=== PATIENT | male | born 1960 | race Two or more races ===

== ENCOUNTER → 2020-05-16 11:25 | Outpatient (BNVA) | payer OTHER, SELFPAY | PROVIDERS: Visit Provider Surgery Vascular Surgery | DX: M79.604 Pain in right leg (principal) | CPT/HCPCS: 99212 ==

== ENCOUNTER 2021-03-29 09:05 | Emergency (ER) | payer MEDICAID, SELFPAY ==
--- NOTE | ~2021-03-29 | XR_ITS ---
EXAMINATION: XR CHEST CLINICAL INFORMATION: Shortness of breath. COMPARISON: None TECHNIQUE: Frontal view of the chest was obtained. FINDINGS: No significant abnormality is noted involving the heart, lungs, mediastinum, bony thorax or soft tissues. XR/XR chest 1V IMPRESSION: Unremarkable chest exam.
[2021-03-29 09:32] VITALS: BP 117/77; PULSE 74; RESP 18; TEMP 36.6; O2SAT 100; BMI 27.2
[2021-03-29 10:28] LABS: Strep A Nucleic Acid Negative (Negative)
--- NOTE | 2021-03-29 10:52 | ED.URI ---
HPI - URI/Sore Throat General Chief Complaint: Dyspnea Stated Complaint: SOB Time Seen by Provider: 03/29/21 09:30 Source: patient Mode of arrival: ambulatory Limitations: no limitations History of Present Illness HPI Narrative: 60-year-old male who denies any past medical history presenting to the ED with complaints of generalized fatigue, malaise, body aches, chills, sweats, cough and shortness of breath since last night worse this morning. He wants to be tested for COVID. He reports associated abdominal discomfort and softer stools although denies diarrhea. Denies recent travel or sick contacts. Denies any fevers, dizziness, headaches, change of vision, nausea/vomiting, specific point tenderness of the abdomen, back pain, dysuria, hematuria, black or bloody stools, diarrhea, constipation, focal weakness or any other symptoms complaints or concerns at this time. MD elicited complaint: other (URI symptoms wants to be tested for COVID) Onset (ago): day(s) (Since last night) Consistency: constant and progressively worsening Severity: moderate Able to tolerate fluids by mouth: Yes Exacerbating factors: nothing Relieving factors: nothing Associated symptoms: chills, myalgias, diaphoresis, cough, shortness of breath and abdominal pain Treatments prior to arrival: none Related Data Home Medications Medication Instructions Recorded Confirmed cyclobenzaprine 5 mg tablet mg PO 05/16/20 tramadol 50 mg tablet 50 mg PO Q12H PRN 05/16/20 Previous Rx's Medication Instructions Recorded acetaminophen 500 mg tablet 1,000 mg PO QID PRN #14 tab 03/29/21 (Tylenol Extra Strength) albuterol sulfate 90 mcg/actuation 1 inh INHALATION QID PRN #8.5 g 03/29/21 aerosol inhaler azithromycin 250 mg tablet See Rx Instructions .ROUTE 03/29/21 .COMPLEX #6 tab codeine 10 mg-guaifenesin 100 mg/5 5 ml PO Q6H PRN #120 ml 03/29/21 mL oral liquid (Guaifenesin AC) cyclobenzaprine 10 mg tablet 10 mg PO Q8H #10 tab 03/29/21 ibuprofen 800 mg tablet 800 mg PO Q8H PRN #14 tab 03/29/21 Allergies Allergy/AdvReac Type Severity Reaction Status Date / Time penicillin V Allergy Unknown Unknown Verified 05/16/20 11:34 Penicillins [PCN] AdvReac Unknown DOESN'T Verified 05/16/20 11:34 TAKE DUE TO FAMILY HX Review of Systems Review of Systems: Constitutional : Positive chills/fatigue/malaise/diaphoresis, No Fever ENT/Mouth : No sore throat, No runny nose Eyes: No Discharge Cardiovascular : Positive shortness of breath, No Chest Pain Respiratory : Positive Cough, No Sputum, No Wheezing, No Smoke Exposure, No Dyspnea Gastrointestinal : Positive abdominal discomfort, positive looser stools, No Nausea, No Vomiting, No Diarrhea, No constipation Genitourinary : No irregular bleeding, No Dysuria, No Urinary Frequency, No Hematuria, No Urinary Incontinence, No Urgency, No Flank Pain, Musculoskeletal : No Myalgia Skin : No rash Neuro : No Headache Yes all other systems are reviewed and are negative [facility] Past Medical History Attestation statement: The following information was validated with the patient. Medical History No known health problems Social History Social History Advance Directives: No Physical Exam Vital Signs: Vital Signs: Last Vital Signs Temp 97.9 F 03/29/21 09:32 Pulse 74 03/29/21 09:32 Resp 18 03/29/21 09:32 BP 117/77 03/29/21 09:32 Pulse Ox 100 03/29/21 09:32 Body Mass Index 27.2 vital signs have been reviewed as normal and appeared to be correct. Blood pressure normal. Heart rate normal. Respiration rate normal. Temperature normal. Oxygen saturation normal. Appearance: Alert. Oriented X3. No acute distress. Head: Normal external exam. Normocephalic. Eyes: PERRLA. EOMI. Conjunctiva and sclera normal. Eyelids normal. ENT: EAC WNL. TM WNL. Pharynx normal. Uvula midline. Moist mucous membranes. No trismus noted. No drooling noted. No muffled voice noted. Neck: Normal inspection. Neck supple. FROM. No adenopathy. No meningeal signs. CVS: Normal heart rate and rhythm. Heart sound normal. No murmurs noted. Pulses normal throughout. Respiratory: No respiratory distress. Painless inspiration. Breath sounds normal. No wheezes/rales/rhonchi noted. Chest nontender. No accessory muscle usage noted or decreased air movement noted. Abdomen: Soft and nontender. Nondistended. No guarding. No rigidity. Bowel sounds normal in all 4 quadrants. No distention noted. No organomegaly noted. No visible injury noted. No rebound tenderness. Negative Rovsing sign. Negative obturator's sign. Negative psoas sign. Negative Dimas sign. Back: No CVA tenderness. Full range of motion noted. Skin: Skin warm and dry. Normal skin color. Normal skin turgor. No rashes/lesions/lacerations noted. Extremities: No lower extremity edema is noted. No calf tenderness is noted. Extremities exhibit normal range of motion. Extremities nontender. Neuro: Oriented X 3. No motor deficit. No sensory deficit. Reflexes normal. Normal steady gait. Course Course Course Narrative: 60-year-old male presenting to the ED with complaints of URI symptoms since last night worse this morning. Denies recent travel or sick contacts. On exam patient is alert and oriented x3. Not in any acute distress. Lungs clear to auscultation. CV RRR. Abdomen is soft and nontender. X-ray obtained negative for any acute processes. Rapid strep obtained and negative. COVID/RSV/flu pending at this time. No additional labs indicated at this time. Therefore I explained to the patient that I will discharge him with antibiotics and symptomatic treatment and instructions to self isolate until 7-10 days since his symptoms started. I will discharge him and call him today with positive or negative results for COVID. And instructions to return if any new or worsening symptoms to follow up with primary care provider. Patient understands agrees with this plan. MDM - URI/Sore Throat Medical Records Attestation: I reviewed the patient's medical records. Lab Data Attestation: I reviewed the patient's lab results. Labs: Lab Results 03/29/21 Range/Units 10:16 S. pyogenes GrpA SUGAR Negative (Negative) Imaging Data Chest x-ray: Attestation: I personally reviewed and interpreted this imaging study as follows: Radiologist's impression: FINDINGS: No significant abnormality is noted involving the heart, lungs, mediastinum, bony thorax or soft tissues. XR/XR chest 1V IMPRESSION: Unremarkable chest exam. Discharge Plan Discharge Clinical Impression: Upper respiratory infection Patient Disposition: Home, Self-Care Instructions: Upper Respiratory Infection (ED) Additional Instructions: Based on your symptoms and history we have sent a COVID-19. Although your RESULT IS PENDING at this time. RESULTS should return within 2-4 hours. At this time you will be contacted with either NEGATIVE OR POSITIVE results. -Please wait until we contact you for your results. At this time you will be okay for discharge. Please plan for self quarantine for up to 14 days. Do not expose yourself to others. You may not go to work. If testing does come back negative you may return to activities as long as you are no longer having any symptoms for at least 3 days. Please continue to follow cold instructions and wash your hands frequently. You may take Tylenol as directed on the bottle for pain or fever. Patient seen in the emergency department on 03/29/2021 and should be excused from work until negative test results AND until 72 hours without any symptoms AND at least 10 days have passed since symptoms first appeared or since last exposure to COVID-19 positive patient CDC Guidelines for home isolation: - Stay away from others - WEAR A MASK if you are sick AND STAY HOME - Cover your mouth and nose with a tissue when you cough or sneeze. Dispose of tissues in a lined trash can and wash your hands immediately with soap and water for at least 20 seconds. If soap and water are not available, clean hands with alcohol-based hand salvage worker that contains at least 60% alcohol. - Clean your hands often with soap and water for at least 20 seconds - Avoid touching your eyes, nose and mouth with unwashed hands - Do not share dishes, drinking glasses, cups, eating utensils, towels, or bedding with other people in your home. After using these items, wash them thoroughly with soap and water or put in the naphthol soaping machine operator. - Clean high-touch surfaces in your isolation area ( sick room and bathroom) every day; let a caregiver clean and disinfect high-touch surfaces in other areas of the home. Clean the area or item with soap and water or another detergent if it is dirty. Then, use a household disinfectant. - Limit contact with pets and animals: If you must care for a pet, wash your hands before and after interacting with them). Prescriptions: New cyclobenzaprine 10 mg tablet 10 mg PO Q8H Qty: 10 RF: 0 azithromycin 250 mg tablet See Rx Instructions .ROUTE .COMPLEX Qty: 6 RF: 0 ibuprofen 800 mg tablet 800 mg PO Q8H PRN (Reason: pain) Qty: 14 RF: 0 acetaminophen [Tylenol Extra Strength] 500 mg tablet 1,000 mg PO QID PRN (Reason: fever or pain) Qty: 14 RF: 0 codeine-guaifenesin [Guaifenesin AC] 10-100 mg/5 mL liquid 5 ml PO Q6H PRN (Reason: cold symptoms) Qty: 120 RF: 0 albuterol sulfate 90 mcg/actuation HFA aerosol inhaler 1 inh inhalation QID PRN (Reason: shortness of breath or wheezing) Qty: 8.5 RF: 0 Referrals: Physician,Unknown [Primary Care Provider] - 2 days (your pcp ) Print Language: Liberian
[2021-03-29 11:17] LABS: Influenza A PCR NEGATIVE (Negative); Influenza B PCR NEGATIVE (Negative); Resp Syncy Virus RNA Qual PCR NEGATIVE (Negative); SARS COV2 PCR INHOUSE NEGATIVE (Negative)
== END 2021-03-29 11:10 | disposition home or self-care (01) ==
PROVIDERS: Physician Assistant Medical; Emergency Provider Emergency Medicine
DX: J06.9 Acute upper respiratory infection, unspecified (principal); Z20.822 Contact with and (suspected) exposure to COVID-19; R06.02 Shortness of breath; R53.81 Other malaise; R53.83 Other fatigue
CPT/HCPCS: 0241U; 36415; 71045; 87651; 99283

== ENCOUNTER → 2021-04-16 15:40 | Outpatient (BNVA) | payer MEDICAID, SELFPAY | PROVIDERS: Visit Provider Nurse Practitioner Family | DX: Z12.11 Encounter for screening for malignant neoplasm of colon (principal) | CPT/HCPCS: 99202 ==

== ENCOUNTER 2021-05-21 10:29 | Day surgery (SDC) | payer MEDICAID, SELFPAY ==
[2021-05-15 13:57] VITALS: BMI 27.9
--- NOTE | 2021-05-20 11:01 | HO.ANESPROP2 ---
Documented by User: Daniella Rahman NP 05/20/21 11:01 HPI - Anesthesia Eval Consult details Narrative: 60yo M for Colonoscopy PMFSH Active Problems Active Problems: All Active Problems (Updated 05/15/21 @ 13:58 by Aleja Brewer RN) Right leg pain (Acute) Past Medical History Medical History COVID-19 vaccine series completed No known health problems Family History Family History Mother Cancer Sister Cancer Sister Cancer Surgical History Surgical History Hx of foot surgery Social History Social History Patient Tobacco Use Status: Never used Tobacco Use of substances other than those prescribed or required for medical reasons: No Have you been hit, kicked, punched, or otherwise hurt by someone within the past year? If so, by whom?: No Are you DNR?: No Advance Directives Information Provided: Yes Advance Directives on File: No Recently lost weight without trying: No Eating poorly because of decreased appetite: No Nutrition Risks: No Nutritional Risk Poor oral hygiene: No (has dental implants) Meds Allergies Allergy/AdvReac Type Severity Reaction Status Date / Time Penicillins [PCN] AdvReac Intermediate DOESN'T Verified 05/21/21 10:51 TAKE DUE TO FAMILY HX Exam Exam Date and Time: May 20, 2021 1101 Height,Weight and Vital Signs: Height 5 ft 10 in Weight 88.451 kg Assessment and Plan Assessment Anesthesia Assessment: Chart Reviewed Documented by User: Daina Allen MD 05/21/21 11:04 PMFSH Past Medical History Medical History COVID-19 vaccine series completed No known health problems Family History Family History Mother Cancer Sister Cancer Sister Cancer Surgical History Surgical History Hx of foot surgery History of Problems with Anesthesia: No Social History Social History Patient Tobacco Use Status: Never used Tobacco Use of substances other than those prescribed or required for medical reasons: No Have you been hit, kicked, punched, or otherwise hurt by someone within the past year? If so, by whom?: No Are you DNR?: No Advance Directives Information Provided: Yes Advance Directives on File: No Recently lost weight without trying: No Eating poorly because of decreased appetite: No Nutrition Risks: No Nutritional Risk Poor oral hygiene: No (has dental implants) Meds Allergies Allergy/AdvReac Type Severity Reaction Status Date / Time Penicillins [PCN] AdvReac Intermediate DOESN'T Verified 05/21/21 10:51 TAKE DUE TO FAMILY HX Exam Airway Mallampati Class: II TM Dist: >3cm Neck ROM: Full Loose/Missing/Broken Teeth: No Heart: RRR Lungs: CTA Assessment and Plan Assessment Anesthesia Assessment: Anesthesia Plan Discussed Final Anesthetic Review History of Problems with Anesthesia: No NPO: Yes ASA Class: I Final Preanesthetic Review: Meds/Allgs Chart Reviewed, Consent Obtained/Reviewed and Anes Risks/Benef Reviewed Patient Risk: Low Procedure Risk: Low Anesthetic Plan Anesthetic Plan: MAC: Disposition: Standard PACU
--- NOTE | 2021-05-21 10:34 | MHC.SHP ---
Pre-Procedural Eval Section A Date of Service: 05/21/21 Section B Chief Complaint: screening Relevant Family History (Specify if Yes): No Relevant Social History: None Present Medications: None Medical History: No relevant PMH History of Previous Operations: No relevant previous surgery Allergies: Allergies Allergy/AdvReac Type Severity Reaction Status Date / Time Penicillins [PCN] AdvReac Intermediate DOESN'T Verified 05/15/21 13:56 TAKE DUE TO FAMILY HX Review of Systems Sugical H&P ROS: Negative: Constitution, Cardiovascular, Respiratory, Neurological, Psychiatric, Hem-Onc, Allergic/Immunologic, Gastrointestinal, Genitourinary, Musculoskeletal, Integumentary, Endocrine and Eyes/Ears/Nose/Throat Exam Surgical H&P Exam: Normal: HEENT, Normal: Heart, Normal: Lungs, Normal: Extremities, Normal: Abdomen, Normal: Skin and Normal: Neurological Plan Diagnosis/Plan: Unchanged I have reviewed the history and physical and performed a pertinent physical examination on my patient. No changes have occurred unless specified.
[2021-05-21 10:41] VITALS: BP 145/81; PULSE 98; RESP 16; TEMP 36.6; O2SAT 100
--- NOTE | 2021-05-21 10:58 | PM.OP ---
Brief Operative Note Date of Service: 05/21/21 Pre-op diagnosis: colon screening Post-op diagnosis: same Procedure: see op note Surgeon: Deondre Clements MD Anesthesia: MAC Was an Director Federal used for this Procedure?: No Estimated blood loss (mL): 0 Condition: stable Disposition: PACU
--- NOTE | 2021-05-21 10:58 | W.PM.OPN ---
Operative Note Operative Note Date of Service: 05/21/21 Narrative: Operative Information Procedure Description: Colonoscopy COLONOSCOPY Instrument: Olympus variable stiffness adult scope 190L Colonoscopy Monitoring: Vital signs and clinical assessment, continuous EKG monitoring, Pulse oximetry, Carbon Dioxide monitoring and blood pressure monitoring were done throughout the procedure. Colon withdrawal time was 15 minutes. Procedure: The patient was placed in the left lateral decubitis position and pre-procedure medications were administered. After a digital rectal examination of the ano-rectum, the video colonoscope was inserted into the rectum and advanced through the colon to the cecum/TI. The colonoscope was slowly withdrawn in a retrograde panoramic fashion and the colon mucosa was carefully examined including a retroflexed view of the rectum. Findings and interventions are described below. Procedure Difficulty: easy Findings: Terminal Ileum-normal Cecum:normal Ascending Colon: normal Transverse Colon- 10 mm sessile polyp removed with cold snare and x 1 clip applied for hemostasis Descending Colon:normal Sigmoid Colon: moderate severe diverticulosis Rectum: Retroflexion with small to medium sized internal hemorrhoids, grade I Anorectum - normal Colon preparation: [place]ell Bowel Preparation Scale Right colon; 2 Transverse colon: 3 Left colon; 3 (0 = Unprepared colon segment with mucosa not seen due to solid stool that cannot be cleared. 1 = Portion of mucosa of the colon segment seen, but other areas of the colon segment not well seen due to staining, residual stool and/or opaque liquid. 2 = Minor amount of residual staining, small fragments of stool and/or opaque liquid, but mucosa of colon segment seen well. 3 = Entire mucosa of colon segment seen well with no residual staining, small fragments of stool or opaque liquid) Impression and Post Procedure Diagnosis: polyp internal hemorrhoids diverticular disease Plan: High fiber diet leaflet Avoid straining at stool, epsom salts and sitz bath, anusol supps or cream Repeat Colonoscopy in 5-6 years or earlier if clinically indicated Above findings were reviewed with the patient and relevant handouts were provided if indicated.
[2021-05-21] MEDS: Lactated Ringers 1,000 ML 100 ML IVCONT (11:04)
[2021-05-21 11:48] VITALS: BP 98/70; PULSE 85; RESP 18; TEMP 36.1; O2SAT 100
[2021-05-21 12:03] VITALS: BP 121/81; PULSE 89; RESP 18; TEMP 36.1; O2SAT 99
== END 2021-05-21 12:46 | disposition home or self-care (01) ==
PROVIDERS: Visit Provider Internal Medicine Gastroenterology
PROC: 0DJD8ZZ Inspection of Lower Intestinal Tract, Via Natural or Artificial Opening Endoscopic (ICD-10-PCS; CPT 45378; principal; 2021-05-21 11:40)
DX: Z12.11 Encounter for screening for malignant neoplasm of colon (principal); D12.3 Benign neoplasm of transverse colon; K57.30 Diverticulosis of large intestine without perforation or abscess without bleeding; K64.0 First degree hemorrhoids; Z80.3 Family history of malignant neoplasm of breast; Z80.0 Family history of malignant neoplasm of digestive organs; Z88.0 Allergy status to penicillin
CPT/HCPCS: 45385; 88305

== ENCOUNTER 2021-05-30 01:24 | Emergency (ER) | payer MEDICAID, SELFPAY ==
--- NOTE | ~2021-05-30 | CT_ITS ---
EXAMINATION: CT ABDOMEN AND PELVIS WITH CONTRAST CLINICAL INFORMATION: Left lower quadrant pain COMPARISON: 01/12/2013 TECHNIQUE: Multidetector volumetric images were obtained from the superior aspect of the liver through the pubic symphysis following administration 85 mL of Omnipaque 350 intravenous contrast. Sagittal and coronal reformatted images were obtained on the technologist's workstation. Oral contrast: No This CT examination was performed using dose optimization techniques as appropriate, variously including the following: *Automated exposure control *Adjustment of mA and/or kV according to patient size (this includes techniques or standardized protocols for targeted exams where dose is matched to indication/reason for exam; i.e. extremities or head) *Use of iterative reconstruction technique DLP: 645 mGy-cm FINDINGS: LUNG BASES: The visualized lung bases are unremarkable. LIVER, GALLBLADDER, AND BILIARY TREE: The liver is normal in size, shape, and attenuation. No focal hepatic lesion or biliary ductal dilatation is present. The gallbladder is unremarkable with no evidence of radiopaque gallstones, gallbladder wall thickening, or obvious pericholecystic inflammatory changes. PANCREAS: Unremarkable. SPLEEN: Unremarkable. ADRENAL GLANDS: Unremarkable. KIDNEYS AND URETERS: The kidneys are normal in size, shape, and attenuation. No hydronephrosis, hydroureter, or calculi seen. No perinephric stranding. BLADDER: Unremarkable. GASTROINTESTINAL TRACT: The stomach is unremarkable. Normal caliber small bowel. No obstruction. Normal appendix. No colonic wall thickening or acute inflammation. There is diverticulosis of the descending and sigmoid colon. No diverticulitis. No free air or free fluid. ABDOMINAL WALL: No significant hernia is appreciated. LYMPH NODES: Normal. VASCULAR: Unremarkable. PELVIC VISCERA: The prostate and seminal vesicles are unremarkable. OSSEOUS STRUCTURES: No acute or suspicious osseous abnormality. Bilateral L5 pars defects with grade 1 anterolisthesis of L5 on S1. CT/CT abdomen pelvis w con IMPRESSION: Colonic diverticulosis without diverticulitis. No acute findings in the abdomen or pelvis.
[2021-05-30 01:26] VITALS: BP 132/79; PULSE 82; RESP 16; TEMP 36.3; O2SAT 99; BMI 28.0
[2021-05-30 01:54] LABS: MANUAL DIFF FLAG NO
[2021-05-30 01:55] LABS: Basophils Percent Auto 0.3 % (0-2); Eosinophils Absolute Auto 0.1 X10*3/uL (0.0-0.4); Eosinophils Percent Auto 2.5 % (0-4); Hematocrit 41.8 % (42.0-52.0); Hemoglobin 14.5 g/dl (14.0-18.0); Imm Gran Abs Auto 0.01 X10*3/uL (0.00-0.03); Imm Gran Pct Auto 0.3 % (0.0-0.4); Lymphocytes Absolute Auto 1.4 X10*3/uL (1.2-4.9); Lymphocytes Percent Auto 34.3 % (20-40); Mean Corpuscular HGB Conc 34.7 g/dl (31.0-36.0); Mean Corpuscular Hemoglobin 30.9 pg (27.0-33.0); Mean Corpuscular Volume 88.9 fL (80.0-98.0); Monocytes Absolute Auto 0.4 X10*3/uL (0.1-1.2); Monocytes Percent Auto 9.8 % (2-11); Neutrophils Absolute Auto 2.1 x10*3/uL (2.0-8.3); Neutrophils Percent Auto 52.8 % (45-73); Platelet Count 130 X10*3/uL (160-400); Red Cell Distribution Width 11.9 % (11.0-16.0)
[2021-05-30 02:20] LABS: Alanine Aminotransferase 24 U/L (0-40); Albumin Level 4.1 g/dL (3.5-5.0); Alkaline Phosphatase 74 U/L (39-117); Anion Gap 9 (12-20); Aspartate Amino Transferase 18 U/L (5-37); Bilirubin Total 0.7 mg/dL (0.0-1.0); Blood Urea Nitrogen 21 mg/dL (9-16); Calcium 8.8 mg/dL (8.4-10.2); Carbon Dioxide 26 mmol/L (22-29); Chloride 109 mmol/L (96-108); Creatinine Clr Calc Pharmacy 95.9; Estimated Glomerular Filt Rate > 60; Glucose Random 114 mg/dL (60-115); Lipase 22 U/L (8-78); Potassium 3.8 mmol/L (3.3-5.1); Sodium 140 mmol/L (135-145); Total Protein 6.6 g/dL (6.5-8.0)
--- NOTE | 2021-05-30 02:27 | ED_ITS ---
HPI - Abdominal Pain General Chief Complaint: Abdominal Pain Stated Complaint: Abdominal pain Time Seen by Provider: 05/30/21 01:35 Source: patient Mode of arrival: ambulatory History of Present Illness HPI narrative: 60-year-old male without significant past medical history presents with ongoing abdominal discomfort over the past week the patient states started after undergoing colonoscopy. Patient states that he has had ?a lot of gas with minimal stool output? and denies any associated fever, chills, nausea, vomiting, intra-abdominal surgical history, urinary symptoms. Related Data Previous Rx's Medication Instructions Recorded bisacodyl 5 mg tablet,delayed 10 mg PO ONCE 1 Days #2 tab 04/16/21 release (Dulcolax (bisacodyl)) polyethylene glycol 3350 17 238 g PO ONCE #238 g 04/16/21 gram/dose oral powder (Miralax) Allergies Allergy/AdvReac Type Severity Reaction Status Date / Time Penicillins [PCN] AdvReac Intermediate DOESN'T Verified 05/21/21 10:51 TAKE DUE TO FAMILY HX Review of Systems Review of Systems Pertinent positives and negatives as stated in HPI 10 point review systems is otherwise negative. Physical Exam Vital Signs: Vital Signs: Last Vital Signs Temp 97.3 F 05/30/21 01:26 Pulse 75 05/30/21 03:15 Resp 16 05/30/21 03:15 BP 123/80 05/30/21 03:15 Pulse Ox 100 05/30/21 03:15 Body Mass Index 28.0 VITAL SIGNS: Reviewed. GENERAL: Well developed, well nourished, in no acute distress. HEAD: Normocephalic/atraumatic EYES: PERRLA, EOMI OROPHARYNX: no oral lesions noted, posterior pharynx clear NECK: Supple, no adenopathy LUNGS: Normal breath sounds. No adventitious sounds or accessory muscle use. SpO2<99> CARDIOVASCULAR: Regular rate and rhythm without noted murmurs ABDOMEN: Soft, tenderness without rebound to the left lower quadrant, mild dis tension with bowel sounds, no CVA tenderness NEUROLOGIC: Alert and oriented x 4. Strength and sensation to light touch were grossly intact x 4. Course Course Course Narrative: 60-year-old male with history and clinical presentation suggestive of possible diverticulitis, renal colic, and less likely SBO given absent intra-abdominal surgical history. Patient treated with combination analgesics. Review of all investigations without acute findings and patient was provided with simethicone for symptomatic gas relief and encouraged to continue with [id number] medication at home. Was also encouraged to follow up with his primary care provider in the morning for re-evaluation and was otherwise given all results and findings. MDM - Abdominal Pain Lab Data Result diagrams: 05/30/21 01:50 05/30/21 01:50 Labs: Lab Results 05/30/21 05/30/21 05/30/21 Range/Units 01:50 01:50 03:13 WBC 4.0 L (4.8-10.8) X10*3/uL RBC 4.70 (4.60-5.80) X10*6/uL Hgb 14.5 (14.0-18.0) g/dl Hct 41.8 L (42.0-52.0) % MCV 88.9 (80.0-98.0) fL MCH 30.9 (27.0-33.0) pg MCHC 34.7 (31.0-36.0) g/dl RDW 11.9 (11.0-16.0) % Plt Count 130 L (160-400) X10*3/uL MPV 9.0 L (9.4-12.4) fL Immature Gran % (Auto) 0.3 (0.0-0.4) % Neut % (Auto) 52.8 (45-73) % Lymph % (Auto) 34.3 (20-40) % [place] % (Auto) 9.8 (2-11) % Eos % (Auto) 2.5 (0-4) % Baso % (Auto) 0.3 (0-2) % Lymph # (Auto) 1.4 (1.2-4.9) X10*3/uL [place] # (Auto) 0.4 (0.1-1.2) X10*3/uL Eos # (Auto) 0.1 (0.0-0.4) X10*3/uL Baso # (Auto) 0.0 (0.0-0.2) X10*3/uL Abs Immat Gran (auto) 0.01 (0.00-0.03) X10*3/uL Absolute Neuts (auto) 2.1 (2.0-8.3) x10*3/uL Absolute Nucleated RBC 0.000 (0.0-0.012) X10*3/uL Nucleated RBC % (auto) 0.0 (0.0-0.2) /100WBC Sodium 140 (135-145) mmol/L Potassium 3.8 (3.3-5.1) mmol/L Chloride 109 H (96-108) mmol/L Carbon Dioxide 26 (22-29) mmol/L Anion Gap 9 L (12-20) BUN 21 H (9-16) mg/dL Creatinine 0.93 (0.5-1.4) mg/dL Estim Creat Clear Calc 95.9 Estimated GFR > 60 Random Glucose 114 (60-115) mg/dL Calcium 8.8 (8.4-10.2) mg/dL Total Bilirubin 0.7 (0.0-1.0) mg/dL AST 18 (5-37) U/L ALT 24 (0-40) U/L Alkaline Phosphatase 74 (39-117) U/L Total Protein 6.6 (6.5-8.0) g/dL Albumin 4.1 (3.5-5.0) g/dL Lipase 22 (8-78) U/L Urine Color YELLOW Urine Appearance CLEAR Urine pH 6.0 (5.0-8.0) Ur Specific [place] 1.010 (1.005-1.025) Urine Protein NEG (NEG-TRACE) MG/DL Urine Glucose (UA) NEG (NEG) MG/DL Urine Ketones NEG (NEG) MG/DL Urine Blood TRACE (NEG) Urine Nitrite NEG (NEG) Ur Leukocyte Esterase NEG (NEG) Discharge Plan Discharge Clinical Impression: Abdominal pain, Gas pain Patient Disposition: Home, Self-Care Instructions: Abdominal Pain (ED), Gas and Bloating (ED) Additional Instructions: 1. Resume all home medications as prescribed. 2. Recommend [id number] gas X (simethicone) for gas pain and bloating. 3. Follow-up with your primary care provider in the next 1-2 days for re- evaluation and further outpatient management. Return to the ER for acute worsening of symptoms. Prescriptions: No Action bisacodyl [Dulcolax (bisacodyl)] 5 mg tablet,delayed release (DR/EC) 10 mg PO ONCE 1 Days Qty: 2 RF: 0 polyethylene glycol 3350 [Miralax] 17 gram/dose powder 238 g PO ONCE Qty: 238 RF: 0 PMFSH Past Medical History Source: nursing notes reviewed Medical History COVID-19 vaccine series completed No known health problems Surgical History Hx of foot surgery Family History Family History Mother Cancer Sister Cancer Sister Cancer Social History Social History Patient Tobacco Use Status: Never used Tobacco Advance Directives: No Advance Directives Information Provided: No
[2021-05-30] MEDS: iohexoL 350 MG/ML 100 ML INFUS..BTL 85 ML IV (02:47)
[2021-05-30 03:15] VITALS: BP 123/80; PULSE 75; RESP 16; O2SAT 100
[2021-05-30] MEDS: Ketorolac Tromethamine 15 MG/ML VIAL IVPUSH (03:16)
[2021-05-30] MEDS: Acetaminophen 325 MG TABLET 975 MG PO (03:18)
[2021-05-30 03:22] LABS: Appearance Urine CLEAR; Color Urine YELLOW; Glucose Urine UA NEG (NEG); Leukocyte Esterase Urine NEG (NEG); Nitrite Urine NEG (NEG); UACC Culture Trigger NO; Urine Blood TRACE (NEG); Urine Ketones NEG (NEG); Urine Protein NEG (NEG-TRACE)
[2021-05-30 03:36] LABS: Bacteria Urine TRACE /LPF; Calcium Oxalate Crystals Urine 1+ /LPF; RBC Urine 0-2 /HPF (0); Squamous Epithelial Cell Urine TRACE /LPF; WBC Urine 0-2 /HPF (0-4)
[2021-05-30 04:49] VITALS: BP 129/76; PULSE 67; RESP 16; O2SAT 100
[2021-05-30] MEDS: Simethicone 80 MG TAB.CHEW 160 MG PO (04:51)
== END 2021-05-30 04:56 | disposition home or self-care (01) ==
PROVIDERS: Emergency Provider Student in an Organized Health Care Education/Training Program
DX: R10.9 Unspecified abdominal pain (principal); R14.1 Gas pain
CPT/HCPCS: 36415; 74177; 80053; 81001; 83690; 85025; 96374; 99284; J1885; Q9967

== ENCOUNTER → 2021-06-04 11:02 | Outpatient (BNVA) | payer MEDICAID, SELFPAY | PROVIDERS: Visit Provider Nurse Practitioner Family | DX: D12.3 Benign neoplasm of transverse colon (principal); K64.0 First degree hemorrhoids; K57.90 Diverticulosis of intestine, part unspecified, without perforation or abscess without bleeding; R14.0 Abdominal distension (gaseous); Z98.890 Other specified postprocedural states; Z88.0 Allergy status to penicillin; Z79.899 Other long term (current) drug therapy | CPT/HCPCS: 99212 ==

== ENCOUNTER → 2021-07-16 14:18 | Outpatient (BNVA) | payer MEDICAID, SELFPAY | PROVIDERS: PCP Internal Medicine; Referring Provider Internal Medicine; Visit Provider Nurse Practitioner Family | DX: K59.01 Slow transit constipation (principal); R14.0 Abdominal distension (gaseous) | CPT/HCPCS: 99212 ==

== ENCOUNTER 2025-02-07 07:57 | Outpatient (AMB) | payer OTHER, SELFPAY ==
--- NOTE | 2025-02-07 08:02 | A.OFFPC_ITS ---
Vital Signs 02/07/25 08:09 Height 5 ft 10 in Weight 193 lb 8 oz BMI 27.8 BP 120/64 Blood Pressure Location Lt brachial Position Sitting Respiration 16 Pulse 84 Pulse Source Pulse Oximeter Temp 98.0 F Temp Source Oral Pulse Oximetry (%) 99 Oxygen Delivery Method Room Air Intake Visit Reasons: urine issues Intake Note: patient here for new patient visit, he is concern of his prostate Maintenance Services Dispatcher Required: No Allergies Penicillins (PCN) Adverse Reaction (Intermediate, Verified 02/07/25 08:06) DOESN'T TAKE DUE TO FAMILY HX Tobacco use date assessed: 02/07/25 Dental Screening Dental Screen Date: 02/07/25 Did you have a dental visit in the last 12 months?: Yes Did you have a dental problem in the last 6 months where you did not have access to dental care?: No Was dental information given to patient?: Patient has dentist HPI urine issues HPI Details Patient is a 64-year-old male who presents today to [facility] care. He states that he has not had a primary care provider in many years. He does have concerns regarding some increased urinary frequency and urgency for the last few months. States that his stream is a bit weaker in this makes him concerned about his prostate. No family history of prostate cancer but he states that when his father passed he believes he was in the workup for prostate cancer. He denies any hematuria, flank pain or abdominal pain. No fevers or chills. He also would like to see a urologist for a vasectomy consultation. He does report ongoing right lower leg swelling. He saw vascular surgery for this in the past and it was felt to not be vascular in etiology. He had shrapnel related to work injury in the right leg and at that point developed the leg swelling and pain. He did have a negative ultrasound at that time. He denies any current pain in his leg but would like another ultrasound to make sure that there is no clot or anything abnormal as he thinks the leg has gotten a little bit more swollen. He denies any erythema, chest pain, shortness on breath. No recent prolonged travel to exacerbate this. No calf pain or tenderness. No discoloration of the foot. No decreased sensation. Colonoscopy: Up-to-date, due 2025 PSA: Due [facility] Medical History COVID-19 vaccine series completed No known health problems Surgical History Hx of colonoscopy Hx of foot surgery Family History (Updated 02/07/25 @ 08:09 by Gail Camejo MA) Mother Cancer Sister Cancer Sister Cancer Social History Housing: House Patient Tobacco Use Status: Never used Tobacco e-Cigarette/Vaping Use: Never Used Second Hand Smoke Exposure: No service: No Current occupational status: employed Current occupation: therapist Current occupational exposures/hazards: No Cognitive needs: No Hearing needs: No Vision needs: No Questionnaire PHQ-9 Over the last 2 weeks, how often have you been bothered by any of the following problems? 1. Little interest or pleasure in doing things: not at all 2. Feeling down, depressed, or hopeless: not at all 3. Trouble falling or staying asleep, or sleeping too much: not at all 4. Feeling tired or having little energy: not at all 5. Poor appetite or overeating: not at all 6. Feeling bad about yourself - or that you are a failure or have let yourself or your family down: not at all 7. Trouble concentrating on things, such as reading the newspaper or watching television: not at all 8. Moving or speaking so slowly that other people could have noticed. Or the opposite - being so fidgety or restless that you have been moving around a lot more than usual: not at all 9. Thoughts that you would be better off or of hurting yourself in some way: not at all Total score: 0 Depression Screening Interpretation: Negative Depression Screening Done: Yes 40871 - PHQ-9 Billing: Yes Source: Developed by Drs. Zaid Foster, Jenae Galvan, Deangelo Newman and colleagues, with an educational beni from [employer]. Thrive Questionnaire Date Thrive assessed: 02/07/25 I am a: Patient What is your living situation today?: I have a steady place to live Within the past 12 months, did the food you bought not last and you didn't have the money to get more?: Never true Within the past 12 months, did you worry whether your food would run out before you got money to buy more?: Never true Do you have trouble paying for medicines?: No Do you have trouble getting transportation to medical appointments?: No Do you have trouble paying your heating and electricity bill?: No Do you have trouble taking care of your child, family member or friend?: No Do you have trouble with day-to-day activities such as bathing, preparing meals, shopping, managing finances, etc.?: No Are you currently unemployed and looking for a job?: No Are you interested in more education?: No Please select the resources that you would like help with: None Currently or been in a relationship where the following occur: No concerns reported THRIVE Score: 0 AUDIT C Alcohol Use Questionnaire (AUDIT-C) 1. How often do you have a drink containing alcohol?: Never 3. How often do you have six or more drinks on one occasion?: Never Total Score: 0 Score Reviewed/Action Taken: Yes CHIARA-7 AMB Questionnaire CHIARA-7 Date CHIARA - 7 assessed: 02/07/25 Feeling nervous, anxious, or on edge: 0 = Not at all Not being able to stop or control worryin = Not at all Worrying too much about different things: 0 = Not at all Trouble relaxin = Not at all Being so restless that it is hard to sit still: 0 = Not at all Becoming easily annoyed or irritable: 0 = Not at all Feeling afraid as if something awful might happen: 0 = Not at all Total CHIARA-7 score (0-4 normal; 5-9 mild; 10-14 moderate; 15-21 severe): 0 Source: Developed by Drs. Zaid Foster, Jenae Galvan, Deangelo Newman and colleagues, with an educational beni from [employer]. CHIARA-7 Assessment Billing CHIARA-7 Assessment Tool: CHIARA-7 Assessment 64850 Physical exam (Primary Care) Tobacco/Smoking Status: Tobacco use Status Tobacco use date assessed 02/07/25 02/07/25 08:09 Patient Tobacco Use Status Never used Tobacco 02/07/25 08:03 e-Cigarette/Vaping Use Never Used 02/07/25 08:09 PHQ-9: PHQ-9 Score PHQ-9: Total score 0 02/07/25 08:03 Depression Screening Interpretation: Negative Thrive Assessment: Date of Thrive Assessment Date Thrive assessed 02/07/25 02/07/25 08:03 Currently or been in a relationship where the following occur: No concerns reported Const Orientation/consciousness: patient oriented x3 [facility] Ears: hearing grossly normal bilaterally General nose exam: No nasal polyps present Face and sinus: Yes sinuses nontender Mouth: Normal oral and palatal mucosa present Eyes Pupils: Equal, round and reactive pupils present EOM: EOMs intact bilaterally Neck Neck: Yes full ROM and Yes no lymphadenopathy Thyroid: Thyroid normal Lymphatic: no lymphadenopathy noted Chest Chest palpation & inspection: normal inspection of the chest Resp Auscultation: clear to auscultation bilaterally Cardio Rate: regular rate Rhythm: regular rhythm Heart sounds: S1 normal heart sound present and S2 normal heart sound present Peripheral pulses: Peripheral pulses 2+ throughout GI Other: Soft, nontender Inspection: Yes normal to inspection Palpation (GI): Soft to palpation and Other GI palpation findings present (nontender, no cva tenderness) Auscultation: normoactive bowel sounds Rectal Exam - Male: Yes deferred General: Yes no CVA tenderness Back/Spine/Pelvis Other: Nontender Back: no CVA tenderness Skin General skin exam: no rashes or lesions noted Neuro General: patient oriented x3, gait normal and no focal motor deficits Cranial nerves: Yes Equal, round and reactive pupils present Motor exam (neuro): 5/5 motor strength present throughout Sensory Exam: double simultaneous stimulation for sensation normal Extrem Other: right lower leg obviously larger than left. right lower leg 40 cm, left lower leg 34.5 cm. General: Yes full ROM and Yes capillary refill normal Psych Affect: normal affect Attitude: cooperative Thought process: Normal thought process present Thought content: Normal thought content present Insight: Good insight present (Psych) Judgement: Good judgement present (Psych) Coding Level of Care Code New Pt Level 3 (71836) Complex EM visit Add On G2211 Diagnoses Urinary frequency R35.0 Right leg swelling M79.89 Additional Codes PHQ-9 - 24509 - PHQ-9 Billing: Yes ([id number]) CHIARA-7 Assessment Billing - CHIARA-7 Assessment Tool: CHIARA-7 Assessment 88148 ([id number]) Assessment & Plan Assessment & Plan (1) Urinary frequency: Code(s): R35.0 - Frequency of micturition Category: Medical Plan: Labs and urine ordered today Referral to urology (2) Right leg swelling: Code(s): M79.89 - Other specified soft tissue disorders Category: Medical Plan: Ultrasound ordered we will follow up pending test results Orders: Orders UA CC w/rflx Micro + Cult Today R35.0 - Frequency of micturition, Z13.220 - Encounter for screening for lipoid disorders Prostate Specific Antigen Scr Today R35.0 - Frequency of micturition, Z01.89 - Encounter for other specified special examinations, Z13.220 - Encounter for screening for lipoid disorders Microalbumin, Random (w Creat) Today R35.0 - Frequency of micturition, Z13.220 - Encounter for screening for lipoid disorders US venous duplex LE RT Today M79.89 - Other specified soft tissue disorders Complete Blood Count Auto Diff Today R35.0 - Frequency of micturition, Z13.220 - Encounter for screening for lipoid disorders Comprehensive [place]. Panel Fast Today R35.0 - Frequency of micturition, Z13.220 - Encounter for screening for lipoid disorders Lipid Panel Today R35.0 - Frequency of micturition, Z13.220 - Encounter for screening for lipoid disorders TSH reflex Free T4 Today R35.0 - Frequency of micturition, Z13.220 - Encounter for screening for lipoid disorders Referrals Urology Referral R35.0 - Frequency of micturition, Z30.09 - Encounter for other general counseling and advice on contraception
--- OUTSIDE RECORDS SUMMARY | 2025-02-07 08:03 | XMS_ITS | Clinical Summary ---
Author Organization [facility] Address [address] [place] [address] Care Team Providers Care Marine Firer Name Role Phone Unknown, Primary Care Provider Unavailabl e Social History Tobacco Use Types Packs/Day Years Used Date Smoking Tobacco: Never Assessed Sex and Gender Information Value Date Recorded Sex Assigned at Not on file Gender Identity Not on file Sexual Orientation Not on file Plan of Treatment Health Maintenance Due Date Last Done Comments Hepatitis C Screening 1961 COVID-19 Vaccine (#1) 01/16/1962 Depression Screening 1973 Preventative Health Evaluation 1979 DTap / Tdap / Td (1 - Tdap) 1980 Colon Cancer Screening (Colonoscopy) 2006 Shingrix-Zoster Vaccine (1 of 2) 2011 Influenza Vaccine (#1) 2025 RSV Adult > 60+ Yrs or Pregn ant (1 - 1-dose 75+ series) 2036 Hepatitis B Vaccines Aged Out No long er eligible based on patient's age to complete this topic Pneumococcal Vaccine Aged Out No long er eligible based on patient's age to complete this topic RSV Ped < 20 months Aged Out No longe r eligible based on patient's age to complete this topic Care Teams Marine Firer Relationship Specialty Start Date End Date Unknown, PCP - General 06/11/20
--- OUTSIDE RECORDS SUMMARY | 2025-02-07 08:03 | XMS_ITS | Clinical Summary ---
Author Organization [facility] Address [address] [phone] Phone Care Team Providers Care Marine Fireman Name Role Phone Pcp, Unknown Primary Care Provider Unavailabl e Social History Tobacco Use Types Packs/Day Years Used Date Smoking Tobacco: Never Assessed Education Answer Date Recorded Are you interested in more education? Not on raimundo e 06/07/2024 Are you concerned about learning? Not on file 06/07/2024 No 06/07/2024 No 06/07/2024 Digital Access Answer Date Recorded No 06/07/2024 No 06/07/2024 Reliable internet access at home? Not on file 06/07/2024 Device with a working camera? Not on file Sex and Gender Information Value Date Recorded Sex Assigned at Not on file Legal Sex Male 3:20 PM EST Gender Identity Not on file Sexual Orientation Not on file Plan of Treatment Not on file Medical Devices Not on file Insurance [facility] Care Teams Marine Fireman Relationship Specialty Start Date End Date Pcp, Unknown PCP - General 06/07/24 Additional Source Comments The information contained in this document represents components of the legal health record. It is not the complete legal health record.[facility]
[2025-02-07 08:09] VITALS: BP 120/64; PULSE 84; RESP 16; TEMP 36.7; O2SAT 99; BMI 27.8
== END 2025-02-07 08:30 | disposition home or self-care (01) ==
LOC: HO.HMCFM 07:58
PROVIDERS: PCP Physician Assistant; Visit Provider Physician Assistant
DX: R35.0 Frequency of micturition (principal); M79.89 Other specified soft tissue disorders

== ENCOUNTER → 2025-02-07 07:57 | Outpatient (BNVA) | payer OTHER, SELFPAY | PROVIDERS: PCP Physician Assistant; Visit Provider Physician Assistant | DX: R35.0 Frequency of micturition (principal); R39.15 Urgency of urination; M79.89 Other specified soft tissue disorders | CPT/HCPCS: 96127; 99202 ==

== ENCOUNTER 2025-02-10 09:45 | Outpatient (REF) | payer OTHER, SELFPAY ==
--- OUTSIDE RECORDS SUMMARY | 2025-02-10 09:48 | XMS_ITS | Clinical Summary ---
Author Organization [facility] Address [address] [place] [address] Care Team Providers Care Options Trader Name Role Phone Unknown, Primary Care Provider [...] age to complete this topic Care Teams Options Trader Relationship Specialty Start Date End Date Unknown, PCP - General 06/11/20
[2025-02-10 10:02] LABS: MANUAL DIFF FLAG NO
[2025-02-10 10:29] LABS: Hematocrit 45.2 % (42.0-52.0); Hemoglobin 15.5 g/dl (14.0-18.0); Imm Gran Abs Auto 0.01 X10*3/uL (0.00-0.03); Imm Gran Pct Auto 0.2 % (0.0-0.4); Lymphocytes Absolute Auto 1.5 X10*3/uL (1.2-4.9); Mean Corpuscular HGB Conc 34.3 g/dl (31.0-36.0); Mean Corpuscular Hemoglobin 30.9 pg (27.0-33.0); Mean Corpuscular Volume 90.2 fL (80.0-98.0); NRBC Abs Auto 0.000 X10*3/uL (0.0-0.012); NRBC Pct Auto 0.0 /100WBC (0.0-0.2); Platelet Count 149 X10*3/uL (160-400); Red Blood Count 5.01 X10*6/uL (4.60-5.80); White Blood Count 4.6 X10*3/uL (4.8-10.8)
[2025-02-10 11:06] LABS: Alanine Aminotransferase 27 U/L (0-40); Albumin Level 4.3 g/dL (3.5-5.0); Alkaline Phosphatase 64 U/L (39-117); Anion Gap 10 (12-20); Aspartate Amino Transferase 22 U/L (5-37); Blood Urea Nitrogen 19 mg/dL (9-16); Calcium 9.0 mg/dL (8.4-10.2); Carbon Dioxide 26 mmol/L (22-29); Chloride 110 mmol/L (96-108); Cholesterol 191 mg/dL (<200); Estimated Glomerular Filt Rate > 60; HDL Cholesterol 40 mg/dL (>40); Potassium 4.4 mmol/L (3.3-5.1); Sodium 142 mmol/L (135-145); Total Protein 7.1 g/dL (6.5-8.0); Triglycerides 146 mg/dL (<150)
[2025-02-10 12:08] LABS: Appearance Urine Clear; Glucose Urine UA Negative (Negative); PH 7.0 (5.0-9.0); Specific Gravity - Urine 1.020 (1.005-1.025)
== END 2025-02-10 09:46 | disposition home or self-care (01) ==
LOC: HO.LAB 09:45
PROVIDERS: PCP Physician Assistant; Visit Provider Physician Assistant
DX: Z01.89 Encounter for other specified special examinations (principal); Z13.220 Encounter for screening for lipoid disorders; R35.0 Frequency of micturition
CPT/HCPCS: 36415; 80053; 80061; 81003; 82043; 82570; 84153; 84443; 85025

== ENCOUNTER 2025-02-15 10:51 | Outpatient (REF) | payer OTHER, SELFPAY ==
--- NOTE | ~2025-02-15 | US_ITS ---
EXAMINATION: US TRIPLEX LOWER EXTREMITY, RIGHT CLINICAL INFORMATION: Swelling of right leg COMPARISON: None available. TECHNIQUE: Color-flow triplex imaging with spectral analysis and compression Doppler were performed on the right lower extremity. FINDINGS: Respiratory variation, normal compression and augmented flow are noted throughout the right lower extremity. The visualized common femoral vein, superficial femoral vein, profunda femoral vein, popliteal vein and midcalf peroneal and posterior tibial venous segments show no evidence of deep venous thrombosis. There is no Bronson's cyst. US/US venous duplex LE RT IMPRESSION: No evidence of deep venous thrombosis involving the right lower extremity. Electronically signed by: Hayden Pierson MD 02/15/2025 11:16 AM EDT
--- OUTSIDE RECORDS SUMMARY | 2025-02-15 11:41 | XMS_ITS | Clinical Summary ---
Author Organization [facility] Address [address] [place] [address] Care Team Providers Care Inlayer Silver Name Role Phone Unknown, Primary Care Provider [...] age to complete this topic Care Teams Inlayer Silver Relationship Specialty Start Date End Date Unknown, PCP - General 06/11/20
--- OUTSIDE RECORDS SUMMARY | 2025-02-15 11:41 | XMS_ITS | Clinical Summary ---
Author Organization [facility] Address [address] [phone] Phone Care Team Providers Care Making Machine Catcher Name Role Phone Pcp, Unknown Primary Care [...] file Medical Devices Not on file Insurance [facility] Care Teams Making Machine Catcher Relationship Specialty Start Date End Date Pcp, Unknown PCP - General 06/07/24 Additional Source Comments The information contained in this document represents components of the legal health record. It is not the complete legal health record.[facility]
== END 2025-02-15 10:52 | disposition home or self-care (01) ==
LOC: HO.US 10:51
PROVIDERS: PCP Physician Assistant; Visit Provider Physician Assistant
DX: M79.89 Other specified soft tissue disorders (principal)
CPT/HCPCS: 93971

== ENCOUNTER → 2025-02-15 10:55 | Outpatient (BNV) | payer OTHER, SELFPAY | PROVIDERS: PCP Physician Assistant; Visit Provider Radiology Diagnostic Radiology | DX: R22.41 Localized swelling, mass and lump, right lower limb (principal) | CPT/HCPCS: 93971 ==

== ENCOUNTER 2025-03-23 21:51 | Emergency (ER) | payer OTHER, SELFPAY ==
--- NOTE | ~2025-03-23 | XR_ITS ---
CLINICAL HISTORY: pain R ribs, anterior bony prominence CHEST AND RIGHT RIBS X-RAYS COMPARISON: None provided. FINDINGS: A total of 4 views of the chest and right ribs were obtained. Cardiac size is within normal limits. No acute infiltrate or pleural effusion. No pneumothorax. Dedicated images of the right-sided ribs were performed. No evidence of an acute fracture or dislocation. IMPRESSION: 1. No acute disease. This document has been electronically signed by: Robert Chowdary M.D. on 03/23/2025 22:56:57
[2025-03-23 22:00] VITALS: BP 115/71; PULSE 74; RESP 16; TEMP 36.6; O2SAT 97; BMI 26.9
--- NOTE | 2025-03-23 22:01 | ED.GENADULT ---
HPI - General Adult General Chief complaint: General Medical Stated complaint: lump between breasts Time Seen by Provider: 03/23/25 22:23 Source: patient and old records reviewed Mode of arrival: ambulatory Limitations: no limitations History of Present Illness ED Provider: LONG TYLER narrative: 64 yo male with no PMH here with c/o noticing R side bump of anterior ribs, no trauma, he did have prior liposuction in that area removely in [place]. No other symptoms, no cough, no fevers, no night sweats or weight loss. Rib xray ordered. No prior injury here and they just noted the bony bump tonight. He has no other symptoms. MD complaint: bony bump R chest Onset (ago): day(s) (1) Location: chest Radiation: non-radiation Severity: mild Relieving factors: none Exacerbating factors: other (palpation) Associated symptoms: denies other symptoms Treatments prior to arrival: none Related Data Home Medications ?Medication ?Instructions ?Recorded ?Confirmed No Known Home Meds 02/07/25 Allergies Allergy/AdvReac Type Severity Reaction Status Date / Time Penicillins (PCN) AdvReac Intermediate DOESN'T Verified 03/23/25 22:01 TAKE DUE TO FAMILY HX Review of Systems Review of Systems: Constitutional : No Fever, No Chills, No Fatigue ENT/Mouth : No sore throat, No Rhinorrhea Eyes: No Eye Pain, No Swelling, No Redness Cardiovascular : No Chest Pain, No SOB, pos chest wall pain Respiratory : No Cough, No Sputum Gastrointestinal : No Nausea, No Vomiting, No Diarrhea, No abdominal Pain Genitourinary : No Dysuria, No Urinary Frequency, No Hematuria, Musculoskeletal : No joint pain, No Myalgias, No Joint Swelling Skin : No Skin Lesions, No rash Neuro : No Weakness, No Numbness All other systems reviewed and are negative PMFSH Past Medical History Attestation statement: The following information was validated with the patient. Source: old records reviewed Medical History COVID-19 vaccine series completed No known health problems Surgical History Hx of colonoscopy Hx of foot surgery Family History Family History (Updated 02/07/25 @ 08:09 by Gail Camejo MA) Mother Cancer Sister Cancer Sister Cancer Social History Social History Housing: House Patient Tobacco Use Status: Never used Tobacco e-Cigarette/Vaping Use: Never Used Second Hand Smoke Exposure: No Advance Directives: No Advance Directives Information Provided: Yes Do you have a plan to hurt others: No Plan service: No Current occupational status: employed Current occupation: therapist Current occupational exposures/hazards: No Cognitive needs: No Hearing needs: No Vision needs: No Physical Exam ED Vital Signs: Vital Signs - 24 hr 03/23/25 22:00 Temperature 97.8 F Pulse Rate 74 Respiratory Rate 16 Blood Pressure 115/71 Pulse Oximetry 97 Oxygen Delivery Method Room Air BMI result Body Mass Index 26.9 Appearance: Alert. Oriented X3. No acute distress. Eyes: Pupils equal, round and reactive to light. ENT: Pharynx normal. Neck: Normal inspection. Neck supple. CVS: Normal heart rate and rhythm. Pulses normal. Chest wall: anterior lower rib rib near insertion of sternum is bony prominence but no redness/warmth/rash/fluctuance/it feels bony no ttp Respiratory: No respiratory distress. Breath sounds normal. Abdomen: atraumatic Skin: Skin warm and dry. Normal skin color. Extremities: No lower extremity edema. Neuro: Oriented X 3. No motor deficit. No sensory deficit. CN2-12 intact Course Course Course Narrative: 64 yo male with no PMH here with c/o noticing R side bump of anterior ribs, no trauma, he did have prior liposuction in that area removely in [place]. No other symptoms, no cough, no fevers, no night sweats or weight loss. Rib xray ordered this is a RAPID medical screening exam the rest of the history and physical exam is to be done by the main provider. LONG 03/23/25 1003pm Medical Decision Making Medical Decision Making MDM Narrative: 64 yo male with nonpainful bony prominence of R chest wall at this time is seems bony and not soft/fluctuance. I am going to obtain CXR but I suspect he can follow up with his PCP there seems to be no emergent features or systemic symptoms that would warrant emergent CT scan/MRI/US. This does seem like chest assymetry to me Differential Diagnosis Differential Diagnoses: The differential diagnosis associated with the presentation includes mass, bony prominence, assymetry Independent Interpretation I performed an independent interpretation of an: Plain X-Ray (normal ) Radiology Impression Discussion of test interpretation with radiology: I have reviewed the radiologist's reading. Independent Historian Clinical information obtained from an independent historian. History obtained from or confirmed by: Other (daughter) Discharge Plan Discharge Clinical Impression: Chest wall asymmetry Patient Disposition: Home, Self-Care Additional Instructions: the xray is normal you might want to have your doctor look at this on Wednesday and see if further testing with ultrasound is needed we do not perform chest wall ultrasound return for any worsening symptoms or concerns. CLINICAL HISTORY: pain R ribs, anterior bony prominence CHEST AND RIGHT RIBS X-RAYS COMPARISON: None provided. FINDINGS: A total of 4 views of the chest and right ribs were obtained. Cardiac size is within normal limits. No acute infiltrate or pleural effusion. No pneumothorax. Dedicated images of the right-sided ribs were performed. No evidence of an acute fracture or dislocation. IMPRESSION: 1. No acute disease. This document has been electronically signed by: Robert Chowdary M.D. on 03/23/2025 22:56:57 Prescriptions: No Action No Known Home Meds Print Language: Spanish
--- OUTSIDE RECORDS SUMMARY | 2025-03-23 22:32 | XMS_ITS | Clinical Summary ---
Author Organization [facility] Address [address] [place], [place] [phone] Phone Care Team Providers Care Diesel Engine Tester Name Role Phone Pcp, Unknown Primary Care [...] file Medical Devices Not on file Insurance [facility] Care Teams Diesel Engine Tester Relationship Specialty Start Date End Date Pcp, Unknown PCP - General 06/07/24 Additional Source Comments The information contained in this document represents components of the legal health record. It is not the complete legal health record.[facility]
--- OUTSIDE RECORDS SUMMARY | 2025-03-23 22:32 | XMS_ITS | Clinical Summary ---
Author Organization [facility] Address [address] [place] [address] Care Team Providers Care Scrap Cutter Name Role Phone Unknown, Primary Care Provider [...] age to complete this topic Care Teams Scrap Cutter Relationship Specialty Start Date End Date Unknown, PCP - General 06/11/20
[2025-03-23 23:23] VITALS: BP 115/71; PULSE 74; RESP 16; TEMP 36.6; O2SAT 97
== END 2025-03-23 23:23 | disposition home or self-care (01) ==
PROVIDERS: Emergency Provider Emergency Medicine; PCP Family Medicine
DX: Q67.8 Other congenital deformities of chest (principal)
CPT/HCPCS: 71101; 99282; 99283

== ENCOUNTER → 2025-03-23 21:59 | Outpatient (BNV) | payer OTHER, SELFPAY | PROVIDERS: Emergency Provider Emergency Medicine; PCP Family Medicine; Visit Provider Radiology Diagnostic Radiology | DX: R07.89 Other chest pain (principal) | CPT/HCPCS: 71101 ==

== ENCOUNTER 2025-04-04 09:28 | Outpatient (REF) | payer OTHER, SELFPAY ==
[2025-04-04 18:36] LABS: Hematocrit 44.7 % (42.0-52.0); Hemoglobin 15.4 g/dl (14.0-18.0); Imm Gran Abs Auto 0.02 X10*3/uL (0.00-0.03); Imm Gran Pct Auto 0.4 % (0.0-0.4); Lymphocytes Absolute Auto 1.3 X10*3/uL (1.2-4.9); MANUAL DIFF FLAG NO; Mean Corpuscular HGB Conc 34.5 g/dl (31.0-36.0); Mean Corpuscular Hemoglobin 31.3 pg (27.0-33.0); Mean Corpuscular Volume 90.9 fL (80.0-98.0); NRBC Abs Auto 0.000 X10*3/uL (0.0-0.012); NRBC Pct Auto 0.0 /100WBC (0.0-0.2); Platelet Count 165 X10*3/uL (160-400); Red Blood Count 4.92 X10*6/uL (4.60-5.80); White Blood Count 5.4 X10*3/uL (4.8-10.8)
[2025-04-04 18:52] LABS: Hemoglobin A1C 147.4706 umol/L
[2025-04-04 21:13] LABS: Alanine Aminotransferase 25 U/L (0-40); Albumin Level 4.6 g/dL (3.5-5.0); Alkaline Phosphatase 70 U/L (39-117); Aspartate Amino Transferase 25 U/L (5-37); Total Protein 7.4 g/dL (6.5-8.0)
== END 2025-04-04 09:29 | disposition home or self-care (01) ==
LOC: HO.WFDLDS 09:28
PROVIDERS: PCP Physician Assistant; Visit Provider Physician Assistant
DX: R73.01 Impaired fasting glucose (principal); R22.2 Localized swelling, mass and lump, trunk; K62.89 Other specified diseases of anus and rectum
CPT/HCPCS: 36415; 80076; 83036; 85025; 99212

== ENCOUNTER 2025-04-04 09:28 | Outpatient (AMB) | payer OTHER, SELFPAY ==
--- NOTE | 2025-04-04 09:56 | MHC.PC.OV ---
Vital Signs 04/04/25 09:59 Height 5 ft 10 in Weight 190 lb 4 oz BMI 27.3 BP 110/82 Blood Pressure Location Lt brachial Position Sitting Respiration 12 Pulse 69 Pulse Source Pulse Oximeter Temp 98.1 F Temp Source Oral Pulse Oximetry (%) 98 Intake Visit Reasons: [place] [place] Intake Note: Emergency room follow up Wind Tunnel Engineer Required: No Allergies Penicillins (PCN) Adverse Reaction (Intermediate, Verified 04/04/25 09:57) DOESN'T TAKE DUE TO FAMILY HX Medication List - Last Reconciled 04/04/25 by Jasmina Cao PA-C No Known Home Meds Tobacco use date assessed: 04/04/25 Dental Screening Dental Screen Date: 02/07/25 HPI [place] [place] HPI Details Patient is a 64-year-old male who presents today for an ER follow up. He recently went to [facility] with complaints of a chest wall lump. His told him it has been there for ever and a he states that it is his daughter that made it make the appointment because she was nervous about this. It feels bony and it is at the center of his chest wall. It is nontender. No change in size. No swelling over the chest wall. He did have a chest x-ray which was negative. No chest pain, shortness on breath or wheezing. He also tells me today that for the last few weeks he has noticed a lump next to his anus. He states that it has grown in size and it is not tender but it is bothering him because he notices it every day. There has been no rectal bleeding. Colonoscopy: Up-to-date, due 2025 PSA: Up-to-date COUNTS INCLUDE 234 BEDS AT THE [facility] Medical History COVID-19 vaccine series completed No known health problems Surgical History Hx of colonoscopy Hx of foot surgery Family History (Updated 02/07/25 @ 08:09 by Gail Camejo MA) Mother Cancer Sister Cancer Sister Cancer Social History Housing: House Patient Tobacco Use Status: Never used Tobacco e-Cigarette/Vaping Use: Never Used Second Hand Smoke Exposure: No service: No Current occupational status: employed Current occupation: therapist Current occupational exposures/hazards: No Cognitive needs: No Hearing needs: No Vision needs: No Questionnaire Thrive Questionnaire Date Thrive assessed: 01/24/25 I am a: Patient What is your living situation today?: I have a steady place to live Within the past 12 months, did the food you bought not last and you didn't have the money to get more?: Never true Within the past 12 months, did you worry whether your food would run out before you got money to buy more?: Never true Do you have trouble paying for medicines?: No Do you have trouble getting transportation to medical appointments?: No Do you have trouble paying your heating and electricity bill?: No Do you have trouble taking care of your child, family member or friend?: No Do you have trouble with day-to-day activities such as bathing, preparing meals, shopping, managing finances, etc.?: No Are you currently unemployed and looking for a job?: No Are you interested in more education?: No Please select the resources that you would like help with: None Currently or been in a relationship where the following occur: No concerns reported THRIVE Score: 0 AUDIT C Alcohol Use Questionnaire (AUDIT-C) 1. How often do you have a drink containing alcohol?: Never 3. How often do you have six or more drinks on one occasion?: Never Total Score: 0 CHIARA-7 AMB Questionnaire CHIARA-7 Date CHIARA - 7 assessed: 02/07/25 Source: Developed by Drs. Zaid Foster, Jenae Galvan, Deangelo Newman and colleagues, with an educational beni from [employer]. Physical exam (Primary Care) Vital Signs: Last Vital Signs Temp 98.1 F 04/04/25 09:59 Pulse 69 04/04/25 09:59 Resp 12 04/04/25 09:59 BP 110/82 04/04/25 09:59 Pulse Ox 98 04/04/25 09:59 BMI result Body Mass Index 27.3 Tobacco/Smoking Status: Tobacco use Status Tobacco use date assessed 04/04/25 04/04/25 09:57 Patient Tobacco Use Status Never used Tobacco 04/04/25 09:57 e-Cigarette/Vaping Use Never Used 04/04/25 09:57 Thrive Assessment: Date of Thrive Assessment Date Thrive assessed 01/24/25 04/04/25 09:57 Currently or been in a relationship where the following occur: No concerns reported Const Orientation/consciousness: patient oriented x3 HENMT Ears: hearing grossly normal bilaterally Neck Thyroid: Thyroid normal Lymphatic: no lymphadenopathy noted Chest Other: I believe that the mass that he is feeling is consistent with his xiphoid process. I did explain this to him today. Chest palpation & inspection: normal inspection of the chest Resp Auscultation: clear to auscultation bilaterally Cardio Rate: regular rate Rhythm: regular rhythm Heart sounds: S1 normal heart sound present and S2 normal heart sound present GI Other: He has numerous small, subcutaneous slightly mobile firm lumps noted on the abdominal wall. rectal lesion: He does have a flesh-colored, pea-sized papular lesion noted in the 3 o'clock position Inspection: Yes normal to inspection Palpation (GI): Soft to palpation and Other GI palpation findings present (nontender, no cva tenderness) Auscultation: normoactive bowel sounds Skin General skin exam: no rashes or lesions noted Neuro General: patient oriented x3, gait normal and no focal motor deficits Coding Level of Care Code Est Pt Level 4 (03188) Complex EM visit Add On G2211 Diagnoses Swelling, mass, or lump in chest R22.2 Rectal lump K62.89 Assessment & Plan Assessment & Plan (1) Swelling, mass, or lump in chest: Code(s): R22.2 - Localized swelling, mass and lump, trunk Category: Medical Plan: Ultrasound ordered to review the chest wall and a few of the subcutaneous lump noted on the abdomen which I discussed with him feel consistent with a lipoma Reviewed with patient that I do believe the chest wall lump that he notes is a xiphoid process and I did review this with him today. He will let me know if anything changes (2) Rectal lump: Code(s): K62.89 - Other specified diseases of anus and rectum Category: Medical Plan: Referral to Colorectal surgery Orders: Orders US chest Today R22.2 - Localized swelling, mass and lump, trunk Referrals Colon & Rectal Referral K62.89 - Other specified diseases of anus and rectum Patient Instructions: [phone] -[facility] colon and rectal surgery
[2025-04-04 09:59] VITALS: BP 110/82; PULSE 69; RESP 12; TEMP 36.7; O2SAT 98; BMI 27.3
--- OUTSIDE RECORDS SUMMARY | 2025-04-04 11:10 | XMS_ITS | Clinical Summary ---
Author Organization [facility] Address [address] [place] [address] Care Team Providers Care Brush Machine Setter Name Role Phone Unknown, Primary Care Provider [...] age to complete this topic Care Teams Brush Machine Setter Relationship Specialty Start Date End Date Unknown, PCP - General 06/11/20
--- OUTSIDE RECORDS SUMMARY | 2025-04-04 11:10 | XMS_ITS | Clinical Summary ---
Author Organization [facility] Address [address] [phone] Phone Care Team Providers Care Gun Mechanic Name Role Phone Pcp, Unknown Primary Care [...] file Medical Devices Not on file Insurance [facility] ALLANCE ACO [facility] ACO Care Teams Gun Mechanic Relationship Specialty Start Date End Date Pcp, Unknown PCP - General 06/07/24 Additional Source Comments The information contained in this document represents components of the legal health record. It is not the complete legal health record.[facility]
== END 2025-04-04 10:33 | disposition home or self-care (01) ==
LOC: HO.HMCFM 09:28
PROVIDERS: PCP Physician Assistant; Visit Provider Physician Assistant
DX: R22.2 Localized swelling, mass and lump, trunk (principal); K62.89 Other specified diseases of anus and rectum

== ENCOUNTER 2025-04-25 07:59 | Outpatient (AMB) | payer OTHER, SELFPAY ==
--- NOTE | 2025-04-25 08:01 | A.OFFVIS_ITS ---
Intake Visit Reasons: vasectomy consult Intake Note: Patient is present for VASECOTMY CONSULT Urology Medication:NONE Antibiotic Allergy:PENICILLIMNS Blood Thinner:NONE Branch Account Manager Required: No Allergies Penicillins (PCN) Adverse Reaction (Intermediate, Verified 04/25/25 08:26) DOESN'T TAKE DUE TO FAMILY HX Medication List - Last Reconciled 04/25/25 by MARC Mccurdy No Known Home Meds HPI Comments Details: Anastacio is a pleasant 64-year-old male patient of Dr. Cao. He presents to the office today for - vasectomy evaluation Vasectomy evaluation The patient presents for vasectomy consultation.? He is currently He has fathered 5 children, with a single partner The youngest child is 13 years old His partner is aware and permissive for a vasectomy Current form of control is rhythm Current employment is clinician at [employer] The vasectomy may be complicated due to a history of no complicating issues. Patient education has been provided via AUA video, via printed information, risks of failure, recovery time, bruising and potential pain syndrome have been stressed Discussion today focused on the presence of vasectomy and the risks, benefits and alternatives that are available. Vasectomy as intended as a permanent form of control. Printed information and literature was provided to the patient. Overall there is a one in 2500 failure rate. This can occur at any time after vasectomy. Risks were discussed highlighting hematoma, spermatocele, epididymal congestion, development of sperm antibodies, and development of chronic pain estimated between 1-5%. The procedure was reviewed in detail. Anatomical diagrams of the male genitalia were used to explain the location of the vas deferens. The vas deferens will be transected, the proximal end will be cauterized, a metal clip would be applied to separate the 2 vas deferens ends. It was explained the procedure will be done in the office and takes approximately 10-15 minutes. Less common problems that arise with vasectomy include hematoma, bleeding, allergic reaction to anesthetic, epididymal infection, epididymal congestion, scrotal discomfort, spermatic leak, spermatic granuloma and the possibility of antisperm antibodies. He understands these risks and wishes to proceed. Consent was signed at the office today. He also understands that it takes 12 weeks for sperm to fully clear the system. He will need to provide a semen sample at 12 weeks and if this is not clear a 2nd sample at 16 weeks. Medical clearance to stop using protection will only be provided if he satisfies published criteria for sperm clearance. [facility] Medical History COVID-19 vaccine series completed No known health problems Surgical History Hx of colonoscopy Hx of foot surgery Family History (Updated 02/07/25 @ 08:09 by Gail Camejo MA) Mother Cancer Sister Cancer Sister Cancer Social History Housing: House Patient Tobacco Use Status: Never used Tobacco e-Cigarette/Vaping Use: Never Used Second Hand Smoke Exposure: No service: No Current occupational status: employed Current occupation: therapist Current occupational exposures/hazards: No Cognitive needs: No Hearing needs: No Vision needs: No Review of Systems Const All systems reviewed & are unremarkable except as noted in HPI and below Physical Exam Const General: cooperative, healthy appearing, comfortable, no acute distress, well developed, alert and awake Orientation/consciousness: patient oriented x3 Limitations: no limitations HEENT Head: Yes normal to inspection, Yes normocephalic and Yes atraumatic Ears: hearing grossly normal bilaterally Eyes General: appearance normal, both eyes and all related structures Neck Neck: Yes normal visual inspection and Yes trachea midline Chest Chest palpation & inspection: normal inspection of the chest Resp Effort & Inspection: normal respiratory effort and able to speak in complete sentences Cardio Rate: regular rate GI Inspection: Yes normal to inspection General: Yes no CVA tenderness Back/Spine/Pelvis Back: no CVA tenderness Skin General skin exam: no rashes or lesions noted Neuro General: patient oriented x3 Extrem General: Yes normal to inspection Psych Appearance: grossly normal and well kempt Mental Status: mental status grossly normal Speech and movement: Normal speech and movement present and Clear speech present Affect: normal affect Attitude: cooperative Thought process: Normal thought process present Thought content: Normal thought content present Insight: Fair insight present (Psych) Judgement: Fair judgement present (Psych) Assessment & Plan Assessment & Plan (1) Vasectomy evaluation: Code(s): Z30.09 - Encounter for other general counseling and advice on contraception Category: Medical (2) Anxiety about health: Code(s): R45.89 - Other symptoms and signs involving emotional state Category: Medical Plan Vasectomy was discussed in detail; risks and benefits. All questions were answered. We discussed semen analysis in office verses fellows kit. Prescriptions provided; we discussed importance of bringing medications to office day of procedure. Consent obtain Will schedule for in office vasectomy. Follow-up per doctor's orders; or sooner with any issues, concerns, or questions. Medications: New diazepam (Valium) Bring medication to office day of procedure 2 mg PO DAILY 2 tabs 0RF anxiety R45.89 - Other symptoms and signs involving emotional state tramadol Bringing medication to office day of procedure 50 mg PO Q8H PRN 9 tabs 0RF pain N43.3 - Hydrocele, unspecified Patient Instructions: The patient had an opportunity to ask questions regarding the treatment plan. All questions were answered. Physical exam, labs, and imaging were discussed and reviewed in detail. As well as risks, benefits, and discussion of treatment choices. No major barriers to understanding were identified. The patient expressed understanding and agreement with the above treatment plan. The patient was made aware they should contact our office by phone for worsening of their current condition, the appearance of new symptoms, or with any questions or concerns. Compliance is encouraged with any medications and follow up testing that is ordered. It is a privilege to be allowed the opportunity to participate in? your urological care.? Again, if you have any questions or concerns If you have any questions or concerns please do not hesitate to contact me. The office is [phone]. This note is constructed using voice recognition software. While every effort has been made to ensure accuracy cleaning laborer errors may have been included. Yours sincerely, MARC Mccurdy Coding Level of Care Code New Pt Level 4 (05550) Diagnoses Vasectomy evaluation Z30.09 Anxiety about health R45.89
== END 2025-04-25 08:26 | disposition home or self-care (01) ==
LOC: HO.HUSH 08:00
PROVIDERS: PCP Physician Assistant; Visit Provider Nurse Practitioner Family
DX: Z30.09 Encounter for other general counseling and advice on contraception (principal); R45.89 Other symptoms and signs involving emotional state
CPT/HCPCS: 99204

== ENCOUNTER → 2025-04-25 07:59 | Outpatient (BNVA) | payer OTHER, SELFPAY | PROVIDERS: PCP Physician Assistant; Visit Provider Nurse Practitioner Family | DX: Z30.09 Encounter for other general counseling and advice on contraception (principal); R45.89 Other symptoms and signs involving emotional state | CPT/HCPCS: 99202 ==

== ENCOUNTER 2025-06-06 16:25 | Outpatient (REF) | payer OTHER, SELFPAY ==
--- NOTE | ~2025-06-06 | US_ITS ---
EXAMINATION: US CHEST CLINICAL INFORMATION: R 22.2 COMPARISON: None available. TECHNIQUE: Real-time ultrasound with a linear transducer using grayscale and color technique in the region of concern: Left midline chest, right supraclavicular and right midline chest. FINDINGS: Right midline chest: No solid or cystic lesion. Left midline chest: 1.5 cm lobulated slightly hyperechoic soft tissue lesion without flow on color Doppler interrogation. Right supraclavicular: 2.4 cm lobulated isoechoic abnormality without flow on color Doppler interrogation. US/US chest IMPRESSION: Probable small lipomas, left midline chest and right supraclavicular. Electronically signed by: Raúl Tran MD 06/07/2025 07:20 AM JANICE
--- OUTSIDE RECORDS SUMMARY | 2025-06-07 04:50 | XMS_ITS | Clinical Summary ---
Author Organization [facility] Address [address] [place] [address] Care Team Providers Care Packaging Sales Representative Name Role Phone Unknown, Primary Care Provider [...] age to complete this topic Care Teams Packaging Sales Representative Relationship Specialty Start Date End Date Unknown, PCP - General 06/11/20
--- OUTSIDE RECORDS SUMMARY | 2025-06-07 04:50 | XMS_ITS | Clinical Summary ---
Author Organization [facility] Address [address] [phone] Phone Care Team Providers Care Electrical Checkout Mechanic Name Role Phone Pcp, Unknown Primary [...] file Medical Devices Not on file Insurance [facility] [employer] ACO [facility] ACO Care Teams Electrical Checkout Mechanic Relationship Specialty Start Date End Date Pcp, Unknown PCP - General 06/07/24 Additional Source Comments The information contained in this document represents components of the legal health record. It is not the complete legal health record.[facility]
== END 2025-06-06 16:26 | disposition home or self-care (01) ==
LOC: HO.US 16:25
PROVIDERS: Visit Provider Physician Assistant
DX: R22.2 Localized swelling, mass and lump, trunk (principal)
CPT/HCPCS: 76604

== ENCOUNTER → 2025-06-06 16:26 | Outpatient (BNV) | payer OTHER, SELFPAY | PROVIDERS: Visit Provider Radiology Diagnostic Radiology | DX: R22.2 Localized swelling, mass and lump, trunk (principal) | CPT/HCPCS: 76604 ==

== ENCOUNTER 2025-06-12 14:07 | Outpatient (AMB) | payer OTHER, SELFPAY ==
--- NOTE | 2025-06-12 14:21 | A.OFFVIS_ITS ---
Intake Visit Reasons: vasectomy Intake Note: Patient is present for VASECOTMY Urology Medication:Valium Tramadol Antibiotic Allergy:PENICILLIMNS Blood Thinner:NONE Product Support Rep Required: No Accompanied by: Self / Same As Patient Allergies Penicillins (PCN) Adverse Reaction (Intermediate, Verified 06/12/25 14:22) DOESN'T TAKE DUE TO FAMILY HX HPI Comments Details: Anastacio is a pleasant 64-year-old male patient of Dr. Cao. He presents to the office today for - vasectomy procedure Vasectomy procedure The patient presents for vasectomy consultation.? He is currently He has fathered 5 children, with a single partner The youngest child is 13 years old His partner is aware and permissive for a vasectomy Current form of control is rhythm Current employment is clinician at [employer] The vasectomy may be complicated due to a history of no complicating issues. [facility] Medical History COVID-19 vaccine series completed No known health problems Surgical History Hx of colonoscopy Hx of foot surgery Family History (Updated 02/07/25 @ 08:09 by COLTON Dela Cruz) Mother Cancer Sister Cancer Sister Cancer Social History Housing: House Patient Tobacco Use Status: Never used Tobacco e-Cigarette/Vaping Use: Never Used Second Hand Smoke Exposure: No service: No Current occupational status: employed Current occupation: therapist Current occupational exposures/hazards: No Cognitive needs: No Hearing needs: No Vision needs: No Review of Systems Const Denies chills and Denies fever(s) Card Reports no additional complaints and Denies syncope Resp Denies cough GI Denies abdominal pain and Denies heartburn Reports as per HPI and Denies change in libido Neuro Denies syncope Psych Denies change in libido Endo Denies change in libido Physical Exam Const General: cooperative, healthy appearing, comfortable and no acute distress Orientation/consciousness: patient oriented x3 HEENT Face and sinus: Yes normal facial exam Mouth: moist mucous membranes Neck Neck: Yes normal visual inspection, Yes full ROM and Yes trachea midline Chest Chest palpation & inspection: normal inspection of the chest Resp Effort & Inspection: normal respiratory effort, able to speak in complete sentences and no respiratory distress GI Inspection: Yes normal to inspection Back/Spine/Pelvis Cervical Spine: normal cervical lordosis Thoracic/Lumbar Spine: thoracic and lumbar spine normal to inspection Skin General skin exam: no rashes or lesions noted Neuro General: patient oriented x3, gait normal, tone normal and moves all extremities Extrem General: Yes normal to inspection and Yes capillary refill normal Office Procedures Vasectomy Details: Preoperative diagnosis: Anxiety regarding Postoperative diagnosis: Anxiety regarding unplanned Procedure: Bilateral vasectomy Informed consent had been completed. Preoperative and postoperative instructions were provided to the patient. The patient has transportation home identified at the completion of the procedure. Anti-anxiolytic prescription medication had been taken after consent verification and all questions answered. A limited amount of pain medication was also provided. The penis was elevated using a rubber band that was attached to the patient's shirt. Both vasa were palpated through the skin using a 3 finger technique and the penoscrotal junction was prepped with Betadine. After Betadine application the left vas was elevated using a 3 finger grasping technique. 1% lidocaine was used to create a subdermal bubble. Further anesthetic was then advanced using the 25-gauge needle along the vasa in a prox imal fashion. Approximately 2 minutes were allowed to for local anesthetic uptake. Using the sharp spreading instrument the scrotal skin was spread longitudinally in line with the vasa until the subdermal layer had been divided. The vasa was then elevated from the scrotum using a ring clamp. Care was taken to elevate the superior portion of the vasa by rotating the ring clamp in a caudad direction. The battery powered cautery was used to divide the vasal sheath in a longitudinal direction on the exposed vasa and to strip the vasal sheath from the vasa. The sharp spreading instrument was used to further expose the vas within the vasal sheath. A 2nd narrower ring clamp was placed on the exposed vas and used to lift the vas from the vasal sheath. The cautery was used to divide vasal attachments and allow full exposure of a small loop of vasa. The sharp spreading instrument was then used to create a tunnel under the vasa and spread to allow the blood vessels of the vasa to retract from the vasa. A mosquito clamp was placed on the proximal portion of the vas. The battery- powered cautery was used to make a partial division in the proximal vas and then inserted in order to cauterize the proximal end of the vas. This was then cut and allowed to retract into the vasal sheath. The mosquito was then used to twist the vasa 180 degrees creating a fascial interposition as the proximal portion of the vas retracted in the vasal sheath. Using a 4-0 chromic suture the fascial interposition was sutured closed. The distal portion of the vas was then cut in order to obtain a segment of vasa. An open distal vas is preferred for minimizing postprocedure pain. The vasa were allowed to retract back into the scrotum. A small snap was then used to approximate the skin edges and allow hemostasis without placement of a suture. A similar procedure was repeated on the right side. He tolerated the procedure well. Triple antibiotic was applied. A gauze was applied. An ice pack was applied to assist with minimizing swelling. Postoperative instructions were confirmed. He understands the need to continue to use control methods. A semen sample should be brought for inspection under the microscope in 10-12 weeks. CPT 43363 Time out checklist: patient, procedure, site marked/identified, positioning of patient, supplies available, allergies confirmed and team agrees on procedure Anesthetic used: other Specimens: vas segments not sent to pathology [id number] - Vasectomy Office Meds lidocaine (PF) 10 mg/mL (1 %) injection solution Performing Provider: Jacob Segundo MD [facility] Administered by: Aleja Browne RN on 06/12/25 14:47 Dose Route Admin Location Dispensed Lot Number Expiration Date [facility] [employer] Clerk 2 mL Infiltration 10 mL Total Dispensed Waste 10 mL 0 % Comments: Injection given by Dr. Segundo. Assessment & Plan Assessment & Plan (1) Anxiety about health: Code(s): R45.89 - Other symptoms and signs involving emotional state Category: Medical Plan 12 week follow-up Orders: Orders AMB Vasectomy Today Z30.09 - Encounter for other general counseling and advice on contraception Patient Instructions: This note is constructed using voice recognition software. While every effort has been made to ensure accuracy harvest worker fruit errors may have been included. Imaging studies, laboratory and physical exam results were discussed and reviewed in detail. No major barriers to patient understanding were identified. An opportunity to ask questions regarding the treatment plan was provided. All questions were answered. The patient expressed understanding and agreement with the above treatment plan. The patient is aware they should contact our office by phone for worsening of their current condition or the appearance of new urologic symptoms. Compliance is encouraged with any medications and followup testing that is ordered. It is a privilege to participate in the urologic care of your patient. If you h ave any questions or concerns regarding treatment for the above conditions, or other urologic issues, please do not hesitate to contact me. The office telephone contact is [phone]. Sincerely, Dr Jacob Segundo MD, [facility] - Urology Compassionate Specialist Care for the Genitourinary System Coding Level of Care Code Procedure Only Diagnoses Anxiety about health R45.89 CPT Codes Office Procedure - CPT: 99144 - Vasectomy ([id number])
--- OUTSIDE RECORDS SUMMARY | 2025-06-12 18:02 | XMS_ITS | Clinical Summary ---
Author Organization [facility] Address [address] [place] [address] Care Team Providers Care Bandmill Operator Name Role Phone Unknown, Primary Care Provider [...] age to complete this topic Care Teams Bandmill Operator Relationship Specialty Start Date End Date Unknown, PCP - General 06/11/20
--- OUTSIDE RECORDS SUMMARY | 2025-06-12 18:02 | XMS_ITS | Clinical Summary ---
Author Organization [facility] Address [address] [place], [place] [address] Phone Care Team Providers Care Chemical Librarian Name Role Phone Pcp, Unknown Primary Care [...] file Medical Devices Not on file Insurance [facility] Care Teams Chemical Librarian Relationship Specialty Start Date End Date Pcp, Unknown PCP - General 06/07/24 Additional Source Comments The information contained in this document represents components of the legal health record. It is not the complete legal health record.[facility]
== END 2025-06-12 15:49 | disposition home or self-care (01) ==
LOC: HO.HUSH 14:08
PROVIDERS: PCP Physician Assistant; Visit Provider Urology
DX: Z30.09 Encounter for other general counseling and advice on contraception (principal); R45.89 Other symptoms and signs involving emotional state; Z30.2 Encounter for sterilization
CPT/HCPCS: 55250

== ENCOUNTER → 2025-06-12 14:07 | Outpatient (BNVA) | payer OTHER, SELFPAY | PROVIDERS: PCP Physician Assistant; Visit Provider Urology | DX: Z30.2 Encounter for sterilization (principal); R45.89 Other symptoms and signs involving emotional state; Z30.09 Encounter for other general counseling and advice on contraception | CPT/HCPCS: 55250; J2003 ==